=== PATIENT | female | born 1985 | race Caucasian/White ===

== ENCOUNTER 2024-08-09 13:57 | Emergency (ER) | payer OTHER ==
[~2024-08-09] VITALS: Ht 165.1 cm; Wt 49.1 kg
[2024-08-09 14:24] VITALS: BP 123/92; PULSE 123; RESP 18; TEMP 98.7; O2SAT 99
--- NOTE | 2024-08-09 14:37 | Physician Documentation ---
HPI ~ General Chief Complaint: Medication Refill Stated Complaint: MED REQUEST Time Seen by MD: 14:30 History of Present Illness HPI Comments 38-year-old female traveling from [place] to [place] for 3 weeks forgot to refill her Adderall both extended release that she takes in the morning and then the 30 mg she takes at 3:00 p.m.. The patient does have the pill bottle. P atient is returning and a little less then 2 weeks Medication Reconciliation Allergies: Coded Allergies: No Known Allergies (Unverified , 08/09/24) Review of Systems All Other Systems at this time: Reviewed and Negative Physical Exam Physical Exam Vital Signs: Temperature: 98.7, Source: Temporal, Heart Rate: 123, Respiratory Rate: 18, BP: 123/92, Pulse Oximetry: 99, Weight: 49.100 Oxygen Flow Rate: 0 General Appearance: alert, WD/WN, no apparent distress Respiratory: lungs clear, normal breath sounds, no respiratory distress Chest: no accessory muscle use, chest non-tender Cardiovascular: normal peripheral pulses, regular rate, rhythm, no edema Progress Results/Orders Results/Orders Vital Signs 08/09/24 14:24 Temp 98.7 Pulse 123 Resp 18 B/P (MAP) 123/92 Pulse Ox 99 O2 Flow Rate 0 Medical Decision Making Additional Comment Pill bottles Sukhdev's left site confirmed dosing and fill dates Departure Time of Disposition: 14:32 Disposition: 01 HOME / SELF CARE / HOMELESS Impression: Primary Impression: General medical exam Condition: Stable Discharge Instructions: Medicine Refill at the Emergency Department Additional Instructions: F/U With primary care when back in [place] Referrals: NO PRIMARY CARE PROVIDER (PCP) Prescriptions Amphet Asp/Amphet/D-Amphet XR* (Adderall XR*) 30 Mg Cap.sr.24h 1 CAP PO DAILY for 30 Days, #30 CAP Prov: AYESHA WILLIS NP 08/09/24 Dextroamphetamine/Amphetamine (Adderall 30 mg Tablet) 30 Mg Tablet 1 TAB PO DAILY for 30 Days, #30 TAB 0 Refills Take at 3:00 p.m. Prov: AYESHA WILLIS [employer] 08/09/24 Education Educated: Patient Educated regarding: diagnosis, treatment, need for follow up Signature Scribe Signature: No scribed Attestation: The note accurately reflects work and decisions made by me.Ayesha Willis - BOBBY 08/09/24 14:44 AYESHA WILLIS NP Aug 09, 2024 14:36
[2024-08-09] MEDS ORDERED: AMPH30CA3 PO (14:41)
[2024-08-09] MEDS ORDERED: AMPH30TA3 PO (14:41)
== END 2024-08-09 15:30 | disposition home or self-care (01) ==
LOC: ER 13:58
DX: Z00.8 Encounter for other general examination (principal); Z76.0 Encounter for issue of repeat prescription
CPT/HCPCS: 99281